=== PATIENT | male | born 1985 | race Two or more races ===

== ENCOUNTER → 2024-11-20 | Outpatient (CLI) | payer OTHER, SELFPAY ==
[2024-11-20 10:46] LABS: Post Vasectomy Sperm Presence No Spermatozoa Seen (No Sperm)
== END | disposition home or self-care (01) ==
PROVIDERS: Referring Provider Surgery; Visit Provider Surgery
DX: Z30.8 Encounter for other contraceptive management (principal)
CPT/HCPCS: 89321